=== PATIENT | female | born 1960 | race Caucasian/White ===

== ENCOUNTER → 2017-09-15 | Outpatient (CLI) | payer BC | LOC: MC.RAD 11:00 | DX: Z12.31 Encounter for screening mammogram for malignant neoplasm of breast (principal); Z80.3 Family history of malignant neoplasm of breast ==

== ENCOUNTER → 2020-10-06 | Outpatient (CLI) | payer BC | LOC: MC.RAD 13:45 | DX: Z12.31 Encounter for screening mammogram for malignant neoplasm of breast (principal) ==

== ENCOUNTER → 2021-11-04 | Outpatient (CLI) | payer OTHER | LOC: MC.RAD 14:45 | DX: Z12.31 Encounter for screening mammogram for malignant neoplasm of breast (principal) ==

== ENCOUNTER 2023-09-09 16:38 | Emergency (ER) | payer SELFPAY ==
[~2023-09-09] VITALS: Ht 170.2 cm; Wt 65.9 kg
[2023-09-09 16:42] VITALS: TEMP 98.4
[2023-09-09] MEDS ORDERED: amLODIPine 5 MG TAB PO ONE (17:15)
[2023-09-09] MEDS ORDERED: NORVASC 5MG5 MG/TAB PO (18:02)
[2023-09-09 18:13] VITALS: BP 161/97; PULSE 90
== END 2023-09-09 18:13 | disposition home or self-care (01) ==
LOC: COL.ER 16:38
DX: I10 Essential (primary) hypertension (principal)

== ENCOUNTER → 2023-12-14 | Outpatient (CLI) | payer BC ==
[~2023-12-14] MED LIST: NORVASC 5MG5 MG/TAB PO
== END ==
LOC: MC.RAD 14:45
DX: Z12.31 Encounter for screening mammogram for malignant neoplasm of breast (principal); Z01.419 Encounter for gynecological examination (general) (routine) without abnormal findings